=== PATIENT | male | born 1975 | race Two or more races ===

== ENCOUNTER 2021-08-14 23:57 | Inpatient (IN) | payer MEDICAID, OTHER ==
[~2021-08-14] VITALS: Ht 180.3 cm; Wt 104.3 kg
[2021-08-15] VITALS (10 sets, daily range): BP systolic 91–130; BP diastolic 36–74
--- NOTE | 2021-08-15 | NUR ---
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 PT A/OX4. RESP EVEN AND NON LABORED ON R/A; TOLERATING WELL. CONNECTED PT TO POX AND MONITOR. SAFETY MEASURES IN PLACE.
--- NOTE | 2021-08-15 00:08 | NUR ---
URINE COLLECTED AND SENT TO LAB
--- NOTE | 2021-08-15 00:14 | NUR ---
RN AT BEDSIDE
--- NOTE | 2021-08-15 00:14 | NUR ---
BLOOD COLLECTED AND SENT TO LAB
--- NOTE | 2021-08-15 00:26 | NUR ---
XRAY AT BEDSIDE
[2021-08-15 00:36] LABS: BASOPHILS % (AUTO) 0.5 % (0.0-2.0); EOSINOPHILS % (AUTO) 1.2 % (0.0-6.0); HEMATOCRIT 43 % (39-51); HEMOGLOBIN 14.2 g/dL (13.5-17.5); LYMPHOCYTES # (AUTO) 3.1 K/uL (0.8-4.8); LYMPHOCYTES % (AUTO) 41.5 % (20.0-44.0); MEAN CORPUSCULAR HGB CONC 33 g/dl (31.0-36.0); MEAN CORPUSCULAR VOLUME 80 fL (80-96); MONOCYTES # (AUTO) 0.5 K/uL (0.1-1.30); MONOCYTES % (AUTO) 7.3 % (2.0-12.0); NEUTROPHILS # (AUTO) 3.7 K/uL (1.8-8.9); NEUTROPHILS % (AUTO) 49.5 % (43.0-81.0); PLATELET COUNT (AUTO) 222 K/uL (150-450); RED BLOOD CELL COUNT(AUTO) 5.34 MIL/uL (4.5-6.0); WHITE BLOOD COUNT (AUTO) 7.4 K/uL (4.3-11.0)
[2021-08-15 00:46] LABS: BILIRUBIN,URINE NEGATIVE (NEGATIVE); COLOR,URINE YELLOW (YELLOW); LEUKOCYTE ESTERASE ,URINE NEGATIVE (NEGATIVE); NITRITE, URINE NEGATIVE (NEGATIVE); PROTEIN,URINE NEGATIVE (NEGATIVE); UGLUCOSE >=1000 mg/dL (NEGATIVE); UROBILINOGEN,URINE 0.2 EU/dL (0.2)
[2021-08-15 00:50] LABS: CALCIUM, SERUM 9.3 mg/dL (8.5-10.1); CARBON DIOXIDE 27 mmol/L (21-32); CHLORIDE 100 mmol/L (98-107); CREATININE 1.1 mg/dL (0.6-1.3); GLUCOSE 279 mg/dL (74-106); POTASSIUM 3.5 mmol/L (3.5-5.1); SODIUM SERUM 138 mmol/L (136-145); UREA NITROGEN, BLOOD 17 mg/dL (7-18)
--- NOTE | 2021-08-15 01:54 | NUR ---
CALLED STAT RAD TO F/U WITH REPORT & IN RADIOLOGISTS QUEUE, ABOUT 11 PATIENTS AHEAD BEFORE REPORT CAN BE READ
[2021-08-15] MEDS ORDERED: TDAP [DIPH/PERTUSSIS/TET] 0.5 ML VIAL IM ONE (02:57)
[2021-08-15] MEDS ORDERED: AMOX/CLAVULANATE 875 MG TABLET ONE (02:57)
--- NOTE | 2021-08-15 03:12 | NUR ---
trop: 1414.2 Dr Taveras made aware with an order to repeat EKG
--- NOTE | 2021-08-15 03:15 | NUR ---
COVID SWAB DONE AND SENT TO LAB
--- NOTE | 2021-08-15 03:18 | NUR ---
PT RESTING COMFORTABLY IN BED, DENIES ANY PAIN AT THIS TIME. CONNECTED TO HEART MONITOR. WILL CONTINUE TO MONITOR.
--- NOTE | 2021-08-15 03:23 | NUR ---
UPDATED FLOR () [phone] ON PT'S CONDITION
[2021-08-15] MEDS ORDERED: HEPARIN INFUSION/D5W 500 ML IV ONE ×2 (04:45→05:00)
[2021-08-15] MEDS ORDERED: HEPARIN SODIUM, PORCINE 5000 UNITS/1 ML VIAL ONE ×2 (04:45→13:05)
[2021-08-15] MEDS ORDERED: HEPARIN SODIUM, PORCINE 5000 UNITS/1 ML VIAL IV ONE (05:00)
[2021-08-15] MEDS ORDERED: HEPARIN INFUSION/D5W 500 ML IV PRN (06:00)
[2021-08-15] MEDS ORDERED: ONDANSETRON HCL/PF 4 MG/2 ML VIAL IVP PRN (06:00)
[2021-08-15] MEDS ORDERED: MORPHINE SULFATE INJ 2 MG/ML DISP.SYRIN IV PRN (06:00)
[2021-08-15] MEDS ORDERED: Z GUARD REMEDY 4 OZ OINT TP PRN (06:00)
[2021-08-15] MEDS ORDERED: NITROGLYCERIN PACKET 1 GM PACKET ONE (06:25)
[2021-08-15] MEDS: NITROGLYCERIN PACKET 1 GM PACKET TOP SCH ×3 (06:28→17:26)
[2021-08-15 06:36] LABS: CHOLESTEROL 271 mg/dL (<200); HDL CHOLESTEROL 38 mg/dL (40-60); LDL 173 mg/dL (0-99); TRIGLYCERIDES 290 mg/dL (30-150)
--- NOTE | 2021-08-15 07:00 | NUR ---
CRITICAL: TROPONIN [id number], MD MADE AWARE
[2021-08-15] MEDS ORDERED: INSULIN REGULAR, HUMAN 100 UNIT/ML 3 ML VIAL SQ PRN (07:30)
[2021-08-15] MEDS ORDERED: *INSULIN REGULAR(HUMULIN R)HUM 100 UNIT/ML VIAL SQ PRN (07:30)
[2021-08-15] MEDS ORDERED: DEXTROSE 50%-WATER 50 ML DISP.SYRIN IV PRN (07:30)
[2021-08-15] MEDS ORDERED: PANTOPRAZOLE 40 MG TABLET.DR PO ONE (07:31)
[2021-08-15] MEDS: PANTOPRAZOLE 40 MG TABLET.DR PO SCH (07:33)
[2021-08-15] MEDS: BLOOD SUGAR DIAGNOSTIC 1 EACH STRIP VI SCH ×4 (07:36→22:21)
--- NOTE | 2021-08-15 07:37 | NUR ---
PT AWAKE AND VERBALLY RESPONSIVE. NOT IN ACUTE DISTRESS. NO COMPLAINT OF PAIN AT THIS TIME. ACCUCHECK OBTAINED 161. NO BREAKFAST YET.
--- NOTE | 2021-08-15 07:38 | NUR ---
PROTONIX PO GIVEN TO PATIENT W/ SMALL SIP OF WATER. TAKEN WELL.
--- NOTE | 2021-08-15 07:44 | NUR ---
DR MARTÍNEZ AT BEDSIDE FOR CARDIO CONSULT
--- NOTE | 2021-08-15 07:48 | NUR ---
PT NPO STATUS PER DR. MARTÍNEZ
--- NOTE | 2021-08-15 08:27 | NUR ---
ROOM 120-1
--- NOTE | 2021-08-15 08:34 | NUR ---
PT REPORT GIVEN TO MAHNAZ PRESCOTT.
--- NOTE | 2021-08-15 08:50 | NUR ---
PT TRANSFERRED TO 120-1 VIA ACLS PROTOCOL, ACCOMPANIED BY 2 ER NURSES.
--- NOTE | 2021-08-15 08:57 | NUR ---
RN NOTES: RECEIVED PT FROM ER ALERT AND ORIENTED X 4, RESPIRATION IS EVEN AND UNLABORED, NO SOB NOTED, ON HEPARIN DRIP AT 1200, IV OF LEFT AC PATENT PATENT AND FLUSHED WELL, PT IS NPO.BED IN LOW AND LOCKED POSITION, WILL MONITOR
[2021-08-15] MEDS ORDERED: ASPIRIN EC 81 MG TABLET.DR PO SCH (09:00)
--- NOTE | 2021-08-15 10:00 | NUR ---
RN NOTES: PT NOTED WITH DIARRHEA ALSO C/O OF ABDOMINAL PAIN, SEEN BY DR ALVARADO WITH ORDER TO COLLECT STOOL FOR C.DIFF, PT IS NPO EXCEPT MEDS DUE TO X RAY SHOWS ILEUS
[2021-08-15] MEDS: CARVEDILOL 3.125 MG TABLET PO SCH ×2 (10:09→21:00)
--- NOTE | 2021-08-15 11:36 | NUR ---
RN NOTES: PT PICKED UP BY CARDIAC STADIUM MANAGER STAFF
[2021-08-15] MEDS ORDERED: IODIXANOL 150 ML IV ONE (11:41)
[2021-08-15] MEDS ORDERED: LIDOCAINE 1% INJ 50 ML MDV IJ ONE (11:41)
[2021-08-15] MEDS ORDERED: IV NS 0.9% 1,000 ML ONE (11:41)
[2021-08-15] MEDS ORDERED: IV SET PRIMARY PUMP SET 1 EA INFUS.SET MC ONE (11:41)
[2021-08-15] MEDS ORDERED: FENTANYL PF 100MCG/2ML AMPUL ONE (11:42)
[2021-08-15] MEDS ORDERED: MIDAZOLAM HCL 2 MG/2ML VIAL ONE (11:42)
[2021-08-15] MEDS ORDERED: NITROGLYCERIN IN 5 % DEXTROSE 250 ML IV ONE (11:42)
[2021-08-15] MEDS ORDERED: IODIXANOL 320MG/ML 50 ML IV ONE (13:05)
[2021-08-15] MEDS ORDERED: HEPARIN SODIUM, PORCINE 1,000 UNIT/ML VIAL ONE (13:05)
[2021-08-15] MEDS ORDERED: TICAGRELOR 90 MG TABLET PO ONE (13:13)
--- NOTE | 2021-08-15 14:00 | NUR ---
RN NOTE RECEIVED PATIENT FROM [facility] PLACED IN R00M 251, PATIENT CONNECTED TO MONITOR TEMP 98.8, A/OX4
--- NOTE | 2021-08-15 14:08 | NUR ---
RN NOTE 2CC REMOVED FROM RIGHT TR BAND NO BLEEDING NOTED
--- NOTE | 2021-08-15 18:31 | NUR ---
RN CLOSING NOTE PATIENT SLEEPING IN BE RESPONDS TO NAME, A/OX4 ON ROOM AIR 02 SAT 96%. PATIENT IS AMBULATORY. IV ACCESS ON LAC 18 SL. RIGHT RADIAL INCISION DRESSING CHANGED TEGADERM IN PLACE NO BLEEDING NOTED AT THIS TIME. PATIENT DOES NOT CURRENTLY COMPLAIN OF PAIN OR SOB. SAFETY MEASURES IN PLACE CALL LIGHT WITHIN REACH, 2 SIDE RAILS UP BED LOCKED IN THE LOWEST POSITION. WILL ENDORSE TO NIGHT NURSE FOR SYED.
[2021-08-15] MEDS: ACETAMINOPHEN 325 MG TABLET PO PRN (20:21)
--- NOTE | 2021-08-15 20:30 | NUR ---
ICU/HEALTH RECORDS TECHNOLOGY TEACHER PT COMPLAINED ABOUT HEADACHE, TYLENOL 650MG WAS GIVEN FOR THIS. CALL LIGHT WITHIN REACH. WILL MONITOR THIS PT.
--- NOTE | 2021-08-15 21:15 | NUR ---
ICU/COMPENSATION ADMINISTRATOR 2100-COREG WAS HELD DUE TO LOW BLOOD PRESSURE OF 91/40. WILL CONTINUE TO MONITOR THIS PT'S BLOOD [id number].
[2021-08-15] MEDS ORDERED: ATORVASTATIN 40 MG TABLET PO SCH (22:00)
--- NOTE | 2021-08-15 22:36 | NUR ---
ICU/STRUCTURAL BIOLOGIST PT REFUSED THE 2200 DOSE LIPITOR. PT ALSO 2200 ACCU CHECK IS 152, PT AT THIS TIME REFUSED TO TAKE THE REGULAR INSULIN COVERAGE. PT EXPLAIN THAT HE IS NOT EATING AT THIS TIME.
[2021-08-16] VITALS (12 sets, daily range): BP systolic 92–118; BP diastolic 35–70
[2021-08-16] MEDS: NITROGLYCERIN PACKET 1 GM PACKET TOP SCH ×2 (01:08→06:01)
[2021-08-16] MEDS: ACETAMINOPHEN 325 MG TABLET PO PRN (04:13)
--- NOTE | 2021-08-16 04:15 | NUR ---
ICU/ENROLLED NURSE PT COMPLAINED ABOUT HEADACHE, TYLENOL 650MG WAS GIVEN FOR THIS. CALL LIGHT WITHIN REACH. WILL MONITOR THIS PT.
[2021-08-16 04:57] LABS: BASOPHILS % (AUTO) 0.3 % (0.0-2.0); HEMATOCRIT 41 % (39-51); HEMOGLOBIN 13.6 g/dL (13.5-17.5); LYMPHOCYTES # (AUTO) 1.7 K/uL (0.8-4.8); LYMPHOCYTES % (AUTO) 18.6 % (20.0-44.0); MEAN CORPUSCULAR HGB CONC 33 g/dl (31.0-36.0); MEAN CORPUSCULAR VOLUME 79 fL (80-96); MONOCYTES # (AUTO) 0.6 K/uL (0.1-1.30); MONOCYTES % (AUTO) 6.5 % (2.0-12.0); NEUTROPHILS # (AUTO) 6.9 K/uL (1.8-8.9); NEUTROPHILS % (AUTO) 73.6 % (43.0-81.0); PLATELET COUNT (AUTO) 193 K/uL (150-450); RED BLOOD CELL COUNT(AUTO) 5.16 MIL/uL (4.5-6.0); WHITE BLOOD COUNT (AUTO) 9.3 K/uL (4.3-11.0)
[2021-08-16 05:20] LABS: THYROID STIMULATING HORMONE 0.994 uIU/mL (0.358-3.74)
[2021-08-16 06:12] LABS: ALBUMIN 3.8 g/dL (3.4-5.0); BILIRUBIN,TOTAL 0.9 mg/dL (0.2-1.0); CALCIUM, SERUM 8.7 mg/dL (8.5-10.1); CREATININE 0.9 mg/dL (0.6-1.3); MAGNESIUM 2.1 mg/dL (1.8-2.4); PHOSPHORUS 3.7 mg/dL (2.5-4.9); POTASSIUM 3.5 mmol/L (3.5-5.1); TOTAL PROTEIN, SERUM 7.2 g/dL (6.4-8.2)
--- NOTE | 2021-08-16 07:15 | NUR ---
RN OPENING NOTES RECEIVED PATIENT RESTING IN BED, EASILY AROUSES, VERBALLY RESPONSIVE, A/OX4 ON ROOM AIR 02 SAT 97%. PATIENT IS AMBULATORY. IV ACCESS ON LAC 18 SL. RIGHT RADIAL INCISION DRESSING TEGADERM IN PLACE NO BLEEDING, SWELLING, REDNESS NOTED AT THIS TIME. PATIENT DOES NOT CURRENTLY COMPLAIN OF PAIN OR SOB. SAFETY MEASURES IN PLACE CALL LIGHT WITHIN REACH, 2 SIDE RAILS UP BED LOCKED IN THE LOWEST POSITION. WILL CONTINUE TO MONITOR AND REASSESS FOR ANY CHANGES DURING SHIFT.
[2021-08-16] MEDS: BLOOD SUGAR DIAGNOSTIC 1 EACH STRIP VI SCH (08:12)
[2021-08-16] MEDS: PANTOPRAZOLE 40 MG TABLET.DR PO SCH (08:12)
[2021-08-16] MEDS: CARVEDILOL 3.125 MG TABLET PO SCH (08:12)
[2021-08-16] MEDS ORDERED: ASPIRIN EC 81 MG TABLET.DR PO SCH (09:00)
[2021-08-16] MEDS ORDERED: TICAGRELOR 90 MG TABLET PO SCH (09:00)
--- NOTE | 2021-08-16 10:50 | NUR ---
RN NOTES PATIENT DISCHARGED IN STABLE CONDITION. ON ROOM AIR TOLERATING WELL WITH SATURATION OF 96%. NO SOB OR ANY RESPIRATORY DISTRESS NOTED AT THE TIME. NO C/O CHEST PAIN OR ANY DISCOMFORT AT THE TIME. BREATHING EVEN AND UNLABORED. IV ACCESS REMOVED, NO BLEEDING NOTED. ALL BELONGINGS ACCOUNTED FOR AND GIVEN TO PATIENT. DISCHARGE INSTRUCTIONS GIVEN TO PATIENT. ALL DUE MEDS GIVEN ORDERED. ALL NEEDS ANTICIPATED. PATIENT WHEELED OUT OF HOSPITAL AND LEFT IN STABLE CONDITION WITH .
== END 2021-08-16 18:51 | disposition home or self-care (01) | DRG 174 ==
LOC: ER 23:59 → TRANSITION 08-15 06:01 → TELE1 08-15 08:35 → ICU 08-15 13:59
PROVIDERS: ADMIT Nurse Practitioner Acute Care
PROC: 027135Z Dilation of Coronary Artery, Two Arteries with Two Drug-eluting Intraluminal Devices, Percutaneous Approach (ICD-10-PCS; principal; 2021-08-15)
PROC: B211YZZ Fluoroscopy of Multiple Coronary Arteries using Other Contrast (ICD-10-PCS; 2021-08-15)
PROC: 4A023N7 Measurement of Cardiac Sampling and Pressure, Left Heart, Percutaneous Approach (ICD-10-PCS; 2021-08-15)
DX: I21.4 Non-ST elevation (NSTEMI) myocardial infarction (principal); E11.65 Type 2 diabetes mellitus with hyperglycemia; E66.9 Obesity, unspecified; E78.5 Hyperlipidemia, unspecified; F17.210 Nicotine dependence, cigarettes, uncomplicated; I25.10 Atherosclerotic heart disease of native coronary artery without angina pectoris; I25.2 Old myocardial infarction; Z68.32 Body mass index [BMI] 32.0-32.9, adult; G47.33 Obstructive sleep apnea (adult) (pediatric); Z71.6 Tobacco abuse counseling; Z20.822 Contact with and (suspected) exposure to COVID-19; Z79.4 Long term (current) use of insulin
CPT/HCPCS: 36415; 71045-TC; 80048-TC; 80053-TC; 80061-TC; 82962-TC; 83540-TC; 83735-TC; 84100-TC; 84443-TC; 84484-TC; 85025-TC; 85347; 85610-TC; 85730-TC; 90715; 93307-TC; C1725; C1769; C1887; C9601; C9803; G0378; G0500; J1644; J1815; J2250; J2270; J2405; J3010; J3490; J7030; Q9967